=== PATIENT | female | born 1945 | race Caucasian/White ===

== ENCOUNTER 2016-06-10 10:36 | Inpatient (IN) | payer MEDICARE, OTHER ==
[2016-06-10 11:44] LABS: BASOPHIL % 0.2 % (0.0-0.4); Eosinophil % 0.3 % (0.00-5.0); Granulocytes % 78.5 % (36.0-66.0); Lymphocytes % 13.3 % (24.0-44.0); Mean Cell Volume 90.3 fl (78-100); Mean Corpuscular Hemoglobin 28.5 pg (26-32); Mean Platelet Volume 10.7 fl (6-9.5); Monocytes % 7.7 % (0.0-12.0); Red Blood Count 4.94 M/mm3 (4.1-5.4); Red Cell Distribution Width 14.5 % (11.5-14.0); White Blood Count 17.2 K/mm3 (4.0-10.5)
[2016-06-10 12:00] LABS: ALBUMIN 3.5 g/dL (3.4-5.0); ANION GAP 14.4 MEQ/L (5-15); BILIRUBIN,TOTAL 0.7 mg/dL (0.2-1.0); Carbon Dioxide 24.6 mEq/L (21-32); Potassium 3.8 mEq/L (3.5-5.1)
[2016-06-10 12:07] LABS: Platelet Count 439 K/mm3 (150-450)
[2016-06-10] MEDS: Sodium Chloride 0.9% 1000 ML 1,000 ML IV SCH (12:58)
[2016-06-10] MEDS: FLAGYL 500 MG IVPB 100 ML IV SCH ×2 (12:58→17:37)
--- NOTE | 2016-06-10 14:46 | XRAY ---
Indication: Pneumonia. C. difficile and diarrhea. Comparison: Chest exam April 05, 2016. 2 views of the abdomen demonstrates a few mild air distended small bowel loops with synchronous air-fluid leveling, ileus versus enteritis. No focal bowel dilatation, obstruction, colonic "thumbprinting," or free air. Cholecystectomy clips. Remaining solid organs are unremarkable. Osseous structures demonstrates osteopenia, moderate/advanced multilevel spinal degenerative spondylosis, and moderate levorotoscoliosis centered at the L2-L3 level. PA chest again hyperinflated with right middle lobe infiltrate/atelectasis and left lung base calcified granuloma. Upper lungs clear. Heart is not enlarged. Vascularity normal. Bony thorax intact with mild osteopenia and degenerative changes. Impression: 1. Mild air distended small bowel loops with fluid leveling, ileus versus enteritis. 2. Stable hyperinflated chest with right middle lobe infiltrate/atelectasis. 3. Osteopenia, spinal degenerative spondylosis, and lumbar levorotoscoliosis.
[2016-06-10 17:04] LABS: Collection Type VOID
[2016-06-10 17:05] LABS: COMPLETE URINE MICROSCOPIC? NO
[2016-06-10] MEDS: NORVASC 5 MG PO SCH (22:25)
[2016-06-10] MEDS: Cozaar 50 MG PO SCH (22:25)
--- NOTE | 2016-06-10 22:31 | PCM.HP ---
History of Present Illness - Chief Complaint Chief Complaint: C-Diff,Diarrhea History of Present Illness: is a 70 year old female pt of mine from [facility] who has been treated several times for C. diff recently. She was treated initially for RML pneumonia by ILIANA Avery; after treatment she started having diarrhea and was found to have c. diff. She took po flagyl and recovered for about a week. She started having diarrhea again and took a po course of vancomycin. After that she had no diarrhea for about 2.5 weeks. Two days ago she started having diarrhea and abdominal pain again; pain is across the lower abdomen. C/o chills but denies fever. Tolerating liquids but not solids for the past 2 days. Over night alst night had diarrhea about every 2 hours. This morning she thought she saw blood in her stool but in retrospect thinks it was the raspberry jello she ate last night. She did not have any stools this morning, but did have several this afternoon. Her abdominal pain has improved. - Review of Systems Constitutional: Chills, Weakness Abdominal/Gastrointestinal: Abdominal Pain, Nausea, Diarrhea, Appetite Changes Psychological: No Anxiety, No Depression, No Suicidal Ideations, No Homicidal Ideations All Other Systems: Reviewed and Negative Medications & Allergies Home Medications: Home Medication List Albuterol Sulfate [Proair Hfa] 2 puff IH Q4HPRN PRN 06/10/16 [History Confirmed 06/10/16] Amlodipine Besylate 5 mg [Norvasc 5 mg] 5 mg PO HS 06/10/16 [History Confirmed 06/10/16] Losartan Potassium [Cozaar] 100 mg PO HS 06/10/16 [History Confirmed 06/10/16] Allergies/Adverse Reactions: Allergies Allergy/AdvReac Type Severity Reaction Status Date / Time Sulfa (Sulfonamide Allergy Severe Blisters Verified 06/10/16 11:30 Antibiotics) levofloxacin [From Levaquin] AdvReac Severe Verified 06/10/16 11:30 lisinopril AdvReac Severe Verified 06/10/16 11:48 - Past Medical History Past Medical History: Yes Neurological History: No Pertinent History ENT History: Cataracts Cardiac History: No Pertinent History Respiratory History: No Pertinent History Endocrine Medical History: No Pertinent History Musculoskelatal History: Arthritis GI Medical History: No Pertinent History History: No Pertinent History Pyscho-Social History: No Pertinent History - Female History Are you now?: No - Past Surgical History Past Surgical History: Yes Neuro Surgical History: No Pertinent History Cardiac History: No Pertinent History Respiratory Surgery: No Pertinent History GI Surgical History: Cholecystectomy Genitourinary Surgical Hx: No Pertinent History Musculskeletal Surgical Hx: No Pertinent History Female Surgical History: Dilation & Curettage - Social History Smoking Status: Former smoker How long have you smoked: 50 YEARS Alcohol: Rarely Drug Use: none - Physical Exam Vital Signs: Vital Signs - 24 hr Temp Pulse Resp BP Pulse Ox 06/10/16 20:00 98.4 F 71 18 122/75 93 L 06/10/16 16:00 98.0 F 79 18 128/59 95 06/10/16 10:53 98 F 83 19 114/70 95 General Appearance: no apparent distress Neurologic Exam: alert, oriented x 3, cooperative Eye Exam: eyes nml inspection Neck Exam: normal inspection, non-tender, No lymphadenopathy Respiratory Exam: normal breath sounds, lungs clear, No crackles/rales, No rhonchi, No wheezing Cardiovascular Exam: regular rate/rhythm, normal heart sounds, No murmur Gastrointestinal/Abdomen Exam: soft, normal bowel sounds, tenderness ( generalized ttp), No distention Back Exam: normal inspection Extremity Exam: No pedal edema, No swelling Skin Exam: normal color, warm, dry Results - Labs Lab/Micro Results: Lab Results-Last 24 Hours 06/10/16 06/10/16 06/10/16 Range/Units 11:30 11:30 16:55 WBC 17.2 H (4.0-10.5) K/mm3 RBC 4.94 (4.1-5.4) M/mm3 Hgb 14.1 (12.0-16.0) gm/dl Hct 44.6 (35-47) % MCV 90.3 (78-100) fl MCH 28.5 (26-32) pg MCHC 31.6 L (32-36) g/dl RDW 14.5 H (11.5-14.0) % Plt Count 439 (150-450) K/mm3 MPV 10.7 H (6-9.5) fl Gran % 78.5 H (36.0-66.0) % Lymphocytes % 13.3 L (24.0-44.0) % Monocytes % 7.7 (0.0-12.0) % Eosinophils % 0.3 (0.00-5.0) % Basophils % 0.2 (0.0-0.4) % Basophils # 0.04 (0-0.4) Sodium 136 (136-145) mEq/L Potassium 3.8 (3.5-5.1) mEq/L Chloride 101 (98-107) mEq/L Carbon Dioxide 24.6 (21-32) mEq/L Anion Gap 14.4 (5-15) MEQ/L BUN 11 (9-20) mg/dL Creatinine 1.31 H (0.55-1.30) mg/dl Estimated GFR 42 ML/MIN Glucose 117 H (70-110) MG/DL Calcium 9.3 (8.5-10.1) mg/dL Total Bilirubin 0.7 (0.2-1.0) mg/dL AST 20 (15-37) U/L ALT 19 (12-78) U/L Alkaline Phosphatase 82 (46-116) U/L Serum Total Protein 7.0 (6.4-8.2) gm/dL Albumin 3.5 (3.4-5.0) g/dL Amylase 26 (25-115) U/L Lipase 97 (73-393) U/L Ur Collection Type VOID Urine Color YELLOW (YELLOW) Urine Appearance CLEAR (CLEAR) Urine pH 6.0 (5-6) Ur Specific [place] 1.010 (1.005-1.025) Urine Protein NEGATIVE (Negative) Urine Glucose (UA) NEGATIVE (NEGATIVE) mg/dL Urine Ketones NEGATIVE (NEGATIVE) Urine Nitrite NEGATIVE (NEGATIVE) Urine Bilirubin NEGATIVE (NEGATIVE) Urine Urobilinogen 0.2 (0-1) mg/dL Urine WBC (Auto) NEGATIVE (NEGATIVE) Urine RBC (Auto) NEGATIVE (0-5) Solo/ul Specimen Received 06/10/16 1227 - Radiology Impressions Radiology Exams & Impressions: Radiology Procedures Category Date Time Status OBSTR/ACUTE ABDOMEN SERIES Routine Exams 06/10/16 11:35 Completed Assessment/Plan (1) C. difficile colitis Current Visit: Yes Status: Acute Assessment & Plan: will go ahead and confirm with stool studies. She is a little better on IV flagyl. If not improving would consult GI. (2) Leukocytosis Current Visit: Yes Status: Acute Qualifiers: Leukocytosis type: other Qualified Code(s): D72.828 - Other elevated white blood cell count Assessment & Plan: Likely due to colitis, recheck in a.m. Code(s): D72.829 - ELEVATED WHITE BLOOD CELL COUNT, UNSPECIFIED (3) Renal insufficiency Current Visit: Yes Status: Acute Assessment & Plan: On IV fluids - recheck in a.m.
[2016-06-11] MEDS: FLAGYL 500 MG IVPB 100 ML IV SCH ×5 (00:42→23:49)
[2016-06-11] MEDS: Sodium Chloride 0.9% 1000 ML 1,000 ML IV SCH ×3 (00:45→23:49)
[2016-06-11 05:48] LABS: BASOPHIL % 0.4 % (0.0-0.4); Eosinophil % 2.2 % (0.00-5.0); Granulocytes % 63.9 % (36.0-66.0); Lymphocytes % 24.2 % (24.0-44.0); Mean Cell Volume 91.5 fl (78-100); Mean Platelet Volume 10.8 fl (6-9.5); Monocytes % 9.3 % (0.0-12.0); Platelet Count 345 K/mm3 (150-450); Red Cell Distribution Width 14.3 % (11.5-14.0); White Blood Count 11.3 K/mm3 (4.0-10.5)
[2016-06-11 05:53] LABS: Mean Corpuscular Hemoglobin 28.2 pg (26-32)
[2016-06-11 06:01] LABS: ALBUMIN 2.8 g/dL (3.4-5.0); ANION GAP 10.5 MEQ/L (5-15); BILIRUBIN,TOTAL 0.6 mg/dL (0.2-1.0); Potassium 3.4 mEq/L (3.5-5.1); Total Protein 5.6 gm/dL (6.4-8.2)
[2016-06-11] MEDS: ENOXAPARIN SODIUM SQ SCH (11:08)
--- NOTE | 2016-06-11 20:18 | PCM.NOTE ---
Date and Time: 06/11/162016 Subjective Assessment: patient feeling better, tolerated regular food today. no diarrhea since early this morning but ate for the first time this afternoon. Objective Exam General Appearance: no apparent distress, alert Skin Exam: normal color, warm, dry Respiratory Exam: normal breath sounds, lungs clear, No respiratory distress Cardiovascular Exam: regular rate/rhythm, normal heart sounds Gastrointestinal/Abdomen Exam: soft, No tenderness, No mass Extremity Exam: normal inspection, normal range of motion OBJECTIVE DATA Vital Signs: Vital Signs - 24 hr Temp Pulse Resp BP Pulse Ox 06/11/16 16:00 98.5 F 67 20 125/70 94 L 06/11/16 11:40 97.7 F 68 18 129/62 95 06/11/16 07:44 98.2 F 74 20 109/57 93 L 06/11/16 04:00 98.1 F 74 20 117/68 94 L 06/11/16 00:00 98.3 F 61 18 115/57 93 L Pain Assessment - Last Documented Pain Intensity 0 Pain Scale Used 0-10 Pain Scale Intake and Output: Intake & Output 06/09/16 06/10/16 06/11/16 06/12/16 11:59 11:59 11:59 11:59 Intake Total 3737 1020 Output Total 700 Balance 3037 1020 Weight 71.985 kg 73.663 kg Lab Results: Lab Results-Last 24 Hours 06/11/16 06/11/16 06/11/16 Range/Units 04:10 05:15 05:15 WBC 11.3 H (4.0-10.5) K/mm3 RBC 4.10 (4.1-5.4) M/mm3 Hgb 11.6 L (12.0-16.0) gm/dl Hct 37.5 (35-47) % MCV 91.5 (78-100) fl MCH 28.2 (26-32) pg MCHC 30.9 L (32-36) g/dl RDW 14.3 H (11.5-14.0) % Plt Count 345 (150-450) K/mm3 MPV 10.8 H (6-9.5) fl Gran % 63.9 (36.0-66.0) % Lymphocytes % 24.2 (24.0-44.0) % Monocytes % 9.3 (0.0-12.0) % Eosinophils % 2.2 (0.00-5.0) % Basophils % 0.4 (0.0-0.4) % Basophils # 0.05 (0-0.4) Sodium 140 (136-145) mEq/L Potassium 3.4 L (3.5-5.1) mEq/L Chloride 108 H (98-107) mEq/L Carbon Dioxide 25.0 (21-32) mEq/L Anion Gap 10.5 (5-15) MEQ/L BUN 7 L (9-20) mg/dL Creatinine 1.04 (0.55-1.30) mg/dl Estimated GFR 55 ML/MIN Glucose 103 (70-110) MG/DL Calcium 8.2 L (8.5-10.1) mg/dL Total Bilirubin 0.6 (0.2-1.0) mg/dL AST 18 (15-37) U/L ALT 15 (12-78) U/L Alkaline Phosphatase 61 (46-116) U/L Serum Total Protein 5.6 L (6.4-8.2) gm/dL Albumin 2.8 L (3.4-5.0) g/dL Stl C. diff Tox B Gene NEGATIVE (NEGATIVE) C.difficile [id number] PRESUMPTIVE NEGATIVE (NEGATIVE) Radiology Exams: Radiology Procedures Category Date Time Status OBSTR/ACUTE ABDOMEN SERIES Routine Exams 06/10/16 11:35 Completed Assessment/Plan (1) C. difficile colitis Current Visit: Yes Status: Acute Assessment & Plan: continue IV flagyl, will add po vanc for double therapy (2) Failure of outpatient treatment Current Visit: Yes Status: Acute Code(s): Z78.9 - OTHER SPECIFIED HEALTH STATUS (3) Leukocytosis Current Visit: Yes Status: Acute Qualifiers: Leukocytosis type: other Qualified Code(s): D72.828 - Other elevated white blood cell count Code(s): D72.829 - ELEVATED WHITE BLOOD CELL COUNT, UNSPECIFIED
[2016-06-11] MEDS: VANCOCIN 500 MG VIAL PO SCH (22:26)
[2016-06-11] MEDS: Cozaar 50 MG PO SCH (22:52)
[2016-06-11] MEDS: NORVASC 5 MG PO SCH (22:52)
[2016-06-12 05:40] LABS: BASOPHIL % 0.7 % (0.0-0.4); Eosinophil % 3.7 % (0.00-5.0); Granulocytes % 56.7 % (36.0-66.0); Lymphocytes % 31.1 % (24.0-44.0); Mean Cell Volume 91.6 fl (78-100); Mean Corpuscular Hemoglobin 28.7 pg (26-32); Mean Platelet Volume 10.5 fl (6-9.5); Monocytes % 7.8 % (0.0-12.0); Platelet Count 322 K/mm3 (150-450); Red Blood Count 4.04 M/mm3 (4.1-5.4); White Blood Count 8.3 K/mm3 (4.0-10.5)
[2016-06-12 05:58] LABS: ALBUMIN 2.7 g/dL (3.4-5.0); ALKALINE PHOSPHATASE 56 U/L (46-116); ANION GAP 8.4 MEQ/L (5-15); BILIRUBIN,TOTAL 0.4 mg/dL (0.2-1.0); BLOOD UREA NITROGEN 4 mg/dL (9-20); CHLORIDE 109 mEq/L (98-107); Carbon Dioxide 26.8 mEq/L (21-32); Glucose 93 MG/DL (70-110); Potassium 3.2 mEq/L (3.5-5.1); SGOT/AST 19 U/L (15-37); SGPT/ALT 13 U/L (12-78); SODIUM 141 mEq/L (136-145); Total Protein 5.5 gm/dL (6.4-8.2)
[2016-06-12] MEDS: FLAGYL 500 MG IVPB 100 ML IV SCH ×4 (06:10→23:25)
--- NOTE | 2016-06-12 06:35 | PCM.NOTE ---
Date and Time: 06/12/16 0634 Subjective Assessment: patient still feeling some better, no diarrhea overnight but still feels weak. no new complaints or concerns. Objective Exam General Appearance: no apparent distress, alert Skin Exam: normal color, warm, dry Respiratory Exam: normal breath sounds, lungs clear, No respiratory distress Cardiovascular Exam: regular rate/rhythm, normal heart sounds Gastrointestinal/Abdomen Exam: soft, No tenderness, No mass Extremity Exam: normal inspection, normal range of motion OBJECTIVE DATA Vital Signs: Vital Signs - 24 hr Temp Pulse Resp BP Pulse Ox 06/12/16 04:00 98.1 F 69 18 121/59 92 L 06/12/16 00:00 98.2 F 69 16 125/69 94 L 06/11/16 20:00 98.5 F 71 18 127/63 95 06/11/16 16:00 98.5 F 67 20 125/70 94 L 06/11/16 11:40 97.7 F 68 18 129/62 95 06/11/16 07:44 98.2 F 74 20 109/57 93 L Pain Assessment - Last Documented Pain Intensity 0 Pain Scale Used 0-10 Pain Scale Intake and Output: Intake & Output 06/09/16 06/10/16 06/11/16 06/12/16 11:59 11:59 11:59 11:59 Intake Total 3737 4317 Output Total 700 Balance 3037 4317 Weight 71.985 kg 73.663 kg Lab Results: Lab Results-Last 24 Hours 06/12/16 06/12/16 Range/Units 05:20 05:20 WBC 8.3 (4.0-10.5) K/mm3 RBC 4.04 L (4.1-5.4) M/mm3 Hgb 11.6 L (12.0-16.0) gm/dl Hct 37.0 (35-47) % MCV 91.6 (78-100) fl MCH 28.7 (26-32) pg MCHC 31.4 L (32-36) g/dl RDW 14.0 (11.5-14.0) % Plt Count 322 (150-450) K/mm3 MPV 10.5 H (6-9.5) fl Gran % 56.7 (36.0-66.0) % Lymphocytes % 31.1 (24.0-44.0) % Monocytes % 7.8 (0.0-12.0) % Eosinophils % 3.7 (0.00-5.0) % Basophils % 0.7 (0.0-0.4) % Basophils # 0.06 (0-0.4) Sodium 141 (136-145) mEq/L Potassium 3.2 L (3.5-5.1) mEq/L Chloride 109 H (98-107) mEq/L Carbon Dioxide 26.8 (21-32) mEq/L Anion Gap 8.4 (5-15) MEQ/L BUN 4 L (9-20) mg/dL Creatinine 0.92 (0.55-1.30) mg/dl Estimated GFR > 60 ML/MIN Glucose 93 (70-110) MG/DL Calcium 8.2 L (8.5-10.1) mg/dL Total Bilirubin 0.4 (0.2-1.0) mg/dL AST 19 (15-37) U/L ALT 13 (12-78) U/L Alkaline Phosphatase 56 (46-116) U/L Serum Total Protein 5.5 L (6.4-8.2) gm/dL Albumin 2.7 L (3.4-5.0) g/dL Radiology Exams: Radiology Procedures Category Date Time Status OBSTR/ACUTE ABDOMEN SERIES Routine Exams 06/10/16 11:35 Completed Assessment/Plan (1) C. difficile colitis Current Visit: Yes Status: Acute Assessment & Plan: continue po vanc and IV flagyl, this is 2nd recurrence despite adequate treatment. (2) Failure of outpatient treatment Current Visit: Yes Status: Acute Code(s): Z78.9 - OTHER SPECIFIED HEALTH STATUS (3) Leukocytosis Current Visit: Yes Status: Acute Qualifiers: Leukocytosis type: other Qualified Code(s): D72.828 - Other elevated white blood cell count Code(s): D72.829 - ELEVATED WHITE BLOOD CELL COUNT, UNSPECIFIED
[2016-06-12] MEDS ORDERED: Klor Con 10 MEQ PO SCH (10:00)
[2016-06-12] MEDS: ENOXAPARIN SODIUM SQ SCH ×2 (10:20→10:43)
[2016-06-12] MEDS: VANCOCIN 500 MG VIAL PO SCH (10:21)
[2016-06-12] MEDS: VANCOMYCIN 25MG/ML COMPOUND KIT PO SCH ×4 (10:34→23:20)
[2016-06-12] MEDS: Sodium Chloride 0.9% 10 ML FLUSH Syringe IV SCH ×2 (13:33→23:20)
[2016-06-12] MEDS: NORVASC 5 MG PO SCH (23:19)
[2016-06-12] MEDS: Cozaar 50 MG PO SCH (23:19)
[2016-06-13] MEDS: FLAGYL 500 MG IVPB 100 ML IV SCH (05:32)
[2016-06-13 05:34] LABS: BASOPHIL % 0.6 % (0.0-0.4); Eosinophil % 4.2 % (0.00-5.0); Granulocytes % 56.5 % (36.0-66.0); Lymphocytes % 30.3 % (24.0-44.0); Mean Cell Volume 90.7 fl (78-100); Mean Corpuscular Hemoglobin 28.6 pg (26-32); Mean Platelet Volume 10.6 fl (6-9.5); Monocytes % 8.4 % (0.0-12.0); Platelet Count 336 K/mm3 (150-450); Red Blood Count 4.19 M/mm3 (4.1-5.4); Red Cell Distribution Width 13.8 % (11.5-14.0); White Blood Count 7.8 K/mm3 (4.0-10.5)
[2016-06-13 05:56] LABS: ALBUMIN 2.8 g/dL (3.4-5.0); ALKALINE PHOSPHATASE 59 U/L (46-116); ANION GAP 11.3 MEQ/L (5-15); BILIRUBIN,TOTAL 0.3 mg/dL (0.2-1.0); BLOOD UREA NITROGEN 4 mg/dL (9-20); CHLORIDE 106 mEq/L (98-107); Carbon Dioxide 28.5 mEq/L (21-32); Glucose 113 MG/DL (70-110); Potassium 3.3 mEq/L (3.5-5.1); SGOT/AST 23 U/L (15-37); SGPT/ALT 14 U/L (12-78); SODIUM 143 mEq/L (136-145); Total Protein 5.8 gm/dL (6.4-8.2)
[2016-06-13] MEDS: Sodium Chloride 0.9% 10 ML FLUSH Syringe IV SCH (06:45)
[2016-06-13 07:03] VITALS: BP 160/68; PULSE 78; O2SAT 97
--- NOTE | 2016-06-13 07:46 | PCM.DS ---
Discharge Summary Date of Admission: 06/10/16 10:36 Admitting Physician: GANESH NICHOLE Primary Care Provider: GANESH NICHOLE Allergies Allergies Sulfa (Sulfonamide Antibiotics) Allergy (Severe, Verified 06/10/16 11:30) Blisters levofloxacin [From Levaquin] Adverse Reaction (Severe, Verified 06/10/16 11:30) lisinopril Adverse Reaction (Severe, Verified 06/10/16 11:48) Hospital Summary - Hospital Course Hospital Course: patient was admitted for failure of outpatient treatment for c diff, doing much better. no more diarrhea. tolerating po, no pain, no fever, had elevated wbc but has normalized now. - Vitals & Intake/Output Vital Signs: Vital Signs Temperature 97.7 F 06/13/16 07:02 Pulse Rate 78 06/13/16 07:02 Respiratory Rate 20 06/13/16 07:02 Blood Pressure 160/68 06/13/16 07:02 O2 Sat by Pulse Oximetry 97 06/13/16 07:02 Intake & Output: Intake & Output 06/10/16 06/11/16 06/12/16 06/13/16 11:59 11:59 11:59 11:59 Intake Total 3737 4797 1500 Output Total 700 Balance 3037 4797 1500 Weight 71.985 kg 73.663 kg 74.435 kg 74.389 kg - Lab Result Diagrams: 06/13/16 05:25 06/13/16 05:25 Lab Results-Last 24 Hrs: Lab Results-Last 24 Hours 06/13/16 06/13/16 Range/Units 05:25 05:25 WBC 7.8 (4.0-10.5) K/mm3 RBC 4.19 (4.1-5.4) M/mm3 Hgb 12.0 (12.0-16.0) gm/dl Hct 38.0 (35-47) % MCV 90.7 (78-100) fl MCH 28.6 (26-32) pg MCHC 31.6 L (32-36) g/dl RDW 13.8 (11.5-14.0) % Plt Count 336 (150-450) K/mm3 MPV 10.6 H (6-9.5) fl Gran % 56.5 (36.0-66.0) % Lymphocytes % 30.3 (24.0-44.0) % Monocytes % 8.4 (0.0-12.0) % Eosinophils % 4.2 (0.00-5.0) % Basophils % 0.6 (0.0-0.4) % Basophils # 0.05 (0-0.4) Sodium 143 (136-145) mEq/L Potassium 3.3 L (3.5-5.1) mEq/L Chloride 106 (98-107) mEq/L Carbon Dioxide 28.5 (21-32) mEq/L Anion Gap 11.3 (5-15) MEQ/L BUN 4 L (9-20) mg/dL Creatinine 0.96 (0.55-1.30) mg/dl Estimated GFR > 60 ML/MIN Glucose 113 H (70-110) MG/DL Calcium 8.6 (8.5-10.1) mg/dL Total Bilirubin 0.3 (0.2-1.0) mg/dL AST 23 (15-37) U/L ALT 14 (12-78) U/L Alkaline Phosphatase 59 (46-116) U/L Serum Total Protein 5.8 L (6.4-8.2) gm/dL Albumin 2.8 L (3.4-5.0) g/dL Micro Results-Entire Visit: Microbiology 06/10/16 16:55 - Final Urine, Void MIXED TARAN; 3 OR MORE TYPES. NO PREDOMINANT ORGANISM. NO FURTHER WORKUP. PLEASE RESUBMIT IF CLINICALLY INDICATED. - Radiology Exams Ordered Rad Exams-Entire Visit: Radiology Procedures Category Date Time Status CHEST 1 VIEW (PORTABLE) Urgent Exams 06/12/16 08:45 Taken Discharge Exam General Appearance: no apparent distress, alert Skin Exam: normal color, warm, dry Eye Exam: PERRL, EOMI, eyes nml inspection Respiratory Exam: normal breath sounds, lungs clear, No respiratory distress Cardiovascular Exam: regular rate/rhythm, normal heart sounds Gastrointestinal/Abdomen Exam: soft, No tenderness, No mass Final Diagnosis/Problem List - Final Discharge Diagnosis/Problem (1) C. difficile colitis Current Visit: Yes Status: Acute Assessment & Plan: home on po vanc and flagyl (2) Failure of outpatient treatment Current Visit: Yes Status: Acute (3) Leukocytosis Current Visit: Yes Status: Acute - Discharge Disposition: Home, Self-Care Condition: Stable Prescriptions: New Metronidazole [Flagyl] 500 mg PO TID #30 tablet Vancomycin HCl [Vancomycin 25Mg/ml Compound Kit] 10 ml PO QID #400 ml Continue Amlodipine Besylate 5 mg [Norvasc 5 mg] 5 mg PO HS Losartan Potassium [Cozaar] 100 mg PO HS Albuterol Sulfate [Proair Hfa] 2 puff IH Q4HPRN PRN PRN Reason: sob Instructions: Antibiotic -- associated Colitis -- C difficile Follow up with: GANESH NICHOLE [Primary Care Provider] - 1 Week
[2016-06-13] MEDS: VANCOMYCIN 25MG/ML COMPOUND KIT PO SCH (09:42)
--- NOTE | 2016-06-13 10:24 | XRAY ---
Indication: Cough. Abnormal lung sounds. Comparison: June 10, 2016. Portable chest unchanged again hyperinflated with right middle lobe infiltrate/atelectasis and left base calcified granuloma. Remaining lungs clear. Heart and mediastinal structures within normal limits. No new cardiopulmonary abnormalities. Impression: No appreciable interval change.
[2016-06-13 11:52] LABS: Source Giardia Antigen Feces
[2016-06-13 13:49] LABS: Giardia Antigen EIA Negative (Negative)
== END 2016-06-13 09:40 | disposition home or self-care (01) | DRG 373 ==
LOC: OBSVTOIN 10:36 → MED SURG 10:36
PROVIDERS: ADMIT Family Medicine; ATTEND Family Medicine
DX: A04.7 Enterocolitis due to Clostridium difficile (principal); D72.829 Elevated white blood cell count, unspecified; M19.90 Unspecified osteoarthritis, unspecified site; N28.9 Disorder of kidney and ureter, unspecified
CPT/HCPCS: 36415; 71010; 74022; 80053; 81002; 82150; 83690; 85025; 87045; 87046; 87086; 87177; 87209; 87329; 87335; 87493; J1650; J3370; A9270-GY

== ENCOUNTER 2019-10-05 11:50 | Emergency (ER) | payer MEDICARE, OTHER ==
[2019-10-05] MEDS ORDERED: solu-MEDROL 125 MG IV ONE (11:54)
[2019-10-05 12:00] LABS: A-aADO2 586; ABG HEMOGLOBIN 15.8; ABG POTASSIUM 3.7 (3.5-5.1); ABG SITE LEFT RADIAL; ARTERIAL BLD GAS O2 SATURATION 97.8 % (95-100); ARTERIAL BLOOD GAS BASE EXCESS 0.9 (-2.0-2.0); ARTERIAL BLOOD GAS FIO2 100 %; ARTERIAL BLOOD GAS PCO2 32 mmHg (35-45); ARTERIAL BLOOD GAS PO2 87 mmHg (75-100); ARTERIAL BLOOD GAS pH 7.48 (7.35-7.45); CARBOXYHEMOGLOBIN 1.1 % THgb (0.0-6.9); HCO3- 23.8 (22-28); HGB O2 SAT 95.7 g/dF (94-100); Methhemoglobin 0.9 % (1.4-1.5); paO2 pAO1 0.13
[2019-10-05] MEDS ORDERED: Sodium Chloride 0.9% 1000 ML 1,000 ML IV SCH (12:00)
[2019-10-05] MEDS ORDERED: Sodium Chloride 0.9% 1000 ML 1,000 ML ONE (12:06)
[2019-10-05] MEDS ORDERED: solu-MEDROL 125 MG ONE (12:06)
[2019-10-05 12:11] VITALS: O2SAT 94
[2019-10-05 12:31] LABS: Hematocrit 46.5 % (35-47); Hemoglobin 15.4 gm/dl (12.0-16.0); Mean Cell Volume 89.6 fl (78-100); Mean Corpuscular Hemoglobin 29.7 pg (26-32); Mean Corpuscular Hgb Concent. 33.1 g/dl (32-36); Mean Platelet Volume 10.5 fl (7.5-11.0); Platelet Count 254 K/mm3 (150-450); Red Blood Count 5.19 M/mm3 (4.1-5.4); Red Cell Distribution Width 13.5 % (11.5-14.0); White Blood Count 15.6 K/mm3 (4.0-10.5)
--- NOTE | 2019-10-05 12:32 | ERPHSYRPT ---
- History of Present Illness Time Seen by Provider: 10/05/19 12:18 Source: patient Exam Limitations: clinical condition Patient Subjective Stated Complaint: pt here for increase sob for today with weakness, she was covid positive on . she denies any fever. Triage Nursing Assessment: pt arrived per wc with facemask on, resp shallow and labored,weak appearing, skin w/d/p. moves all ext well, has slight edema to lower legs. mucus membranes moist Physician History: pt here for increase sob for today with weakness, she was covid positive on . she denies any fever. Timing/Duration: today Severity of Dyspnea-Max: moderate Severity of Dyspnea-Current: moderate Associated Symptoms: loss of appetite, wheezing, weakness, dizziness Allergies/Adverse Reactions: Sulfa (Sulfonamide Antibiotics) Allergy (Severe, Verified 10/05/19 12:11) Blisters levofloxacin [From Levaquin] Adverse Reaction (Severe, Verified 10/05/19 12:11) lisinopril Adverse Reaction (Severe, Verified 10/05/19 12:11) Home Medications: Albuterol Sulfate [Proair Hfa] 2 puff IH Q4HPRN PRN 06/10/16 [History] Amlodipine Besylate 5 mg [Norvasc 5 mg] 5 mg PO HS 06/10/16 [History] Losartan Potassium [Cozaar] 100 mg PO HS 06/10/16 [History] Hx Influenza Vaccination/Date Given: Yes Hx Pneumococcal Vaccination/Date Given: Yes Immunizations Up to Date: Yes Travel Risk - International Travel Have you traveled outside of the country in past 3 weeks: No - Coronavirus Screening Are you exhibiting any of the following symptoms?: Yes Symptoms: Cough: New Onset, Shortness of Breath, Headaches/Body Aches/Fatigue Close contact with a COVID-19 positive Pt in past 14-21 Days: Yes - Review of Systems Constitutional: No Fever, No Chills Eyes: No Symptoms Ears, Nose, & Throat: No Symptoms Respiratory: Dyspnea, Dyspnea on Exertion (HERNANDEZ), No Cough Cardiac: Chest Pain, No Edema, No Syncope Abdominal/Gastrointestinal: No Abdominal Pain, No Nausea, No Vomiting, No Diarrhea Genitourinary Symptoms: No Dysuria Musculoskeletal: No Back Pain, No Neck Pain Skin: No Rash Neurological: No Dizziness, No Focal Weakness, No Sensory Changes Psychological: No Symptoms Endocrine: No Symptoms All Other Systems: Reviewed and Negative - Past Medical History Pertinent Past Medical History: Yes Neurological History: No Pertinent History ENT History: Cataracts Cardiac History: No Pertinent History Respiratory History: No Pertinent History Endocrine Medical History: No Pertinent History Musculoskeletal History: Arthritis GI Medical History: No Pertinent History History: No Pertinent History Psycho-Social History: No Pertinent History - Past Surgical History Past Surgical History: Yes Neuro Surgical History: No Pertinent History Cardiac: No Pertinent History Respiratory: No Pertinent History Gastrointestinal: Cholecystectomy Genitourinary: No Pertinent History Musculoskeletal: No Pertinent History Female Surgical History: Dilation & Curettage - Social History Smoking Status: Former smoker How long have you smoked: 50 YEARS Exposure to second hand smoke: No Drug Use: none Patient Lives Alone: No - Female History Hx Last Menstrual Period: post - Nursing Vital Signs Nursing Vital Signs: Initial Vital Signs Temperature 97.8 F 10/05/19 11:55 Pulse Rate 85 10/05/19 11:55 Respiratory Rate 24 10/05/19 11:55 Blood Pressure 99/69 10/05/19 11:55 O2 Sat by Pulse Oximetry 74 L 10/05/19 11:55 Pain Scale Pain Intensity 0 - Physical Exam General Appearance: moderate distress, alert Eye Exam: PERRL/EOMI Ears, Nose, Throat Exam: normal ENT inspection Neck Exam: normal inspection, supple Respiratory Exam: respiratory distress, diminished breath sounds, accessory muscle use, crackles/rales, rhonchi, wheezing Cardiovascular/Chest Exam: normal heart sounds, regular rate/rhythm Abdominal/Gastrointestinal Exam: soft, No tenderness, No distention, No mass Extremity Exam: non-tender, normal range of motion, normal inspection, no calf tenderness, no pedal edema Neurologic Exam: alert, oriented x 3, cooperative, red lead burner II-XII nml as tested, sensation nml, No motor deficits Skin Exam: normal color, warm, No dry SpO2 Interpretation: borderline oxygenation SpO2: 94 O2 Delivery: Non-rebreather - Radiology Exams Chest X-ray Interpretation: Reviewed by me, Infiltrates (bibasilar infiltrates) Ordered Tests: Active Orders 24 hr Category Date Time Status CO2 Monitoring STAT Care 10/05/19 11:54 Active Firewall Security Engineer STAT Care 10/05/19 11:55 Active EKG-ER Only STAT Care 10/05/19 11:54 Active Oxygen-ED Only NON-REBREATHER 100% Care 10/05/19 11:54 Active CHEST 1 VIEW (PORTABLE) Stat Exams 10/05/19 11:56 Taken ARTERIAL BLOOD GASES Stat Lab 10/05/19 11:54 Completed CBC W DIFF Stat Lab 10/05/19 11:54 Ordered CMP Stat Lab 10/05/19 11:54 Ordered D-DIMER QUANTITATIVE Stat Lab 10/05/19 11:54 Ordered Lactic Acid Stat Lab 10/05/19 11:54 Completed NT PRO BNP Stat Lab 10/05/19 11:54 Ordered TROPONIN Stat Lab 10/05/19 11:54 Ordered UA W/RFX UR CULTURE Stat Lab 10/05/19 11:55 Uncollected Medication Summary Generic Name Dose Route Start Last Admin Trade Name Freq PRN Reason Stop Dose Admin Sodium Chloride 1,000 mls @ 100 mls/hr 10/05/19 12:00 Sodium Chloride 0.9% 1000 Ml IV 11/04/19 11:59 .Q10H [place] Discontinued Medications Generic Name Dose Route Start Last Admin Trade Name Freq PRN Reason Stop Dose Admin Methylprednisolone Sodium Succinate 125 mg 10/05/19 11:54 Solu-Medrol 125 Mg IV 10/05/19 11:55 STAT ONE Methylprednisolone Sodium Succinate Confirm 10/05/19 12:06 Solu-Medrol 125 Mg Administered 10/05/19 12:07 Dose 125 mg .ROUTE .STK-MED ONE Lab/Rad Data: Laboratory Results 10/05/19 Range/Units 11:54 Puncture Site LEFT RADIAL pCO2 32 L (35-45) mmHg pO2 87 (75-100) mmHg Base Excess 0.9 (-2.0-2.0) O2 Saturation 95.7 (94-100) g/dF ABG pH 7.48 H (7.35-7.45) ABG HCO3 23.8 (22-28) ABG O2 Sat (Measured) 97.8 (95-100) % Rafiq Test NOT APPLICABLE A-a Gradient 586 a/A Ratio 0.13 Hemoglobin 15.8 Carboxyhemoglobin 1.1 (0.0-6.9) % THgb Methemoglobin 0.9 L (1.4-1.5) % Potassium 3.7 (3.5-5.1) Temperature 37.0 C POC O2 Flow Rate 100 % Lactic Acid 3.0 H (0.4-2.0) - Progress Progress: re-examined, unchanged Air Movement: fair Blood Culture(s) Obtained: No Antibiotics given: No Discussed with Dr.: Other ([facility] hospitalist- Dr Monteiro) Will see patient in: other (at [facility]) Counseled pt/family regarding: lab results, diagnosis, need for follow-up, rad results - Departure Departure Disposition: Transfer ([facility] ICU) Clinical Impression: Pneumonia due to 2019 novel coronavirus Condition: Fair Critical Care Time: Yes Critical Care Time(excluding separately billable procedures): Critical 75-104 mins Referrals: GANESH NICHOLE [Primary Care Provider] - MARIA DE JESUS CARMONA [CONSULTING PHYSICIAN] -
[2019-10-05 12:46] LABS: ALBUMIN 3.5 g/dL (3.5-5.0); ALKALINE PHOSPHATASE 70 U/L (38-126); BLOOD UREA NITROGEN 20 mg/dL (7-17); CHLORIDE 101 mmol/L (98-107); Calcium 9.4 mg/dL (8.4-10.2); Carbon Dioxide 25 mmol/L (22-30); Creatinine 1 0.92 mg/dL (0.52-1.04); EST GLOMERULAR FILTRATION RATE > 60.0 ML/MIN; Glucose 122 mg/dL (74-106); NT PRO BNP 381 pg/mL (0-1800); Potassium 3.7 mmol/L (3.5-5.1); SGOT/AST 54 U/L (14-36); SGPT/ALT 39 U/L (0-35); SODIUM 134 mmol/L (137-145); Total Protein 6.5 g/dL (6.3-8.2)
[2019-10-05 12:48] LABS: TROPONIN < 0.012 ng/mL (0.000-0.034)
[2019-10-05 13:25] VITALS: BP 110/67; PULSE 67
[2019-10-05 17:21] LABS: BAND 6 % (0.0-2.0); Lymphocytes 4 % (24-44); Monocyte 5 % (0.0-12.0); Neutrophils 85 % (36.0-66.0); Platelet Estimate NORMAL (NORMAL); Total Cells Counted 100
--- NOTE | 2019-10-05 19:29 | XRAY ---
Indication: Short of breath. Suspect Covid 19. Comparison: October 01, 2019. Portable chest again hyperinflated with minimally worsening right base infiltrate/atelectasis. Stable left base fibrosis/scarring and tiny calcified granuloma. Heart is not enlarged. No new cardiopulmonary abnormalities.
== END 2019-10-05 13:25 | disposition short-term general hospital (02) ==
LOC: ED 11:50
DX: U07.1 COVID-19 (principal); J12.89 Other viral pneumonia
CPT/HCPCS: 31500; 36415; 36600; 71045; 80053; 82375; 82803; 83605; 83880; 84484; 85025; 85379; 93005; 93041; 96360; 96374; 99285; 99291; 99292; J2930